=== PATIENT | female | born 1975 | race Caucasian/White ===

== ENCOUNTER 2018-12-15 11:31 | Outpatient (CLI) | payer BC ==
--- NOTE | 2018-12-22 16:16 | MMO ---
Bilateral MAMMO Bilat Screen [facility]. CLINICAL HISTORY: Patient is 43 years old and is seen for screening. The patient has no family history of breast cancer. The patient has no personal history of cancer. VIEWS: The views performed were: bilateral craniocaudal with tomosynthesis and bilateral mediolateral oblique with tomosynthesis. FILMS COMPARED: The present examination has been compared to prior imaging studies performed at [facility] on 12/22/2017, at [facility] on 12/29/2014, and at [facility] on 09/11/2015 and 09/22/2016. This study has been interpreted with the assistance of computer-aided detection. MAMMOGRAM FINDINGS: The breasts are heterogeneously dense, which could obscure a lesion on mammography. There are no suspicious masses, suspicious calcifications, or new areas of architectural distortion. IMPRESSION: THERE IS NO MAMMOGRAPHIC EVIDENCE OF MALIGNANCY. A ROUTINE FOLLOW-UP MAMMOGRAM IN 1 YEAR IS RECOMMENDED. THE RESULTS OF THIS EXAM WERE SENT TO THE PATIENT. ACR BI-RADS Category 1 - Negative MAMMOGRAPHY NOTE: 1. A negative mammogram report should not delay a biopsy if a dominant of clinically suspicious mass is present. 2. Approximately 10% to 15% of breast cancers are not detected by mammography. 3. Adenosis and dense breasts may obscure an underlying neoplasm. Reported by: CODY PEÑALOZA MD Electonically Signed: [id number]
== END 2018-12-15 11:32 | disposition home or self-care (01) ==
LOC: BICMAMMO 11:31
PROVIDERS: ATTEND Obstetrics & Gynecology
DX: Z12.31 Encounter for screening mammogram for malignant neoplasm of breast (principal)
CPT/HCPCS: 77063; 77067

== ENCOUNTER 2019-07-05 09:53 | Outpatient (CLI) | payer BC ==
--- NOTE | 2019-07-05 14:29 | CT ---
CT ABDOMEN AND PELVIS WITH ORAL AND IV CONTRAST: HISTORY: Left upper quadrant pain. COMPARISON: None. FINDINGS: The lung bases are clear. The liver demonstrates diffusely decreased attenuation compared to the spl een consistent with fatty infiltration. No focal mass or abnormal biliary ductal dilatation is seen. Numerous calcified gallstones are present. The spleen, pancreas, adrenal glands, and kidneys are n ormal. No free air, free fluid, or lymphadenopathy is seen in the abdomen or pelvis. The small bowel loops are not abnormally dilated. A normal-appearing appendix is present. The patient is post hysterectomy. There is a 3.3 cm right adnexal cystic mass. There are vascular c alcifications without evidence of aneurysmal dilatation of the abdominal aorta. There are mild degen erative changes in the spine. IMPRESSION: 1. Fatty liver. 2. Cholelithiasis. 3. A 3.3 cm right adnexal cystic mass, likely ovarian. This should be evaluated with a pelvic ultra sound. POS: NORRISA
== END 2019-07-05 09:54 | disposition home or self-care (01) ==
LOC: SCSCT 09:53
PROVIDERS: ATTEND Internal Medicine Gastroenterology
DX: K80.20 Calculus of gallbladder without cholecystitis without obstruction (principal); R10.12 Left upper quadrant pain; R19.7 Diarrhea, unspecified; K74.60 Unspecified cirrhosis of liver; N83.8 Other noninflammatory disorders of ovary, fallopian tube and broad ligament
CPT/HCPCS: 36415; 74177; 82941; 84443; 84586

== ENCOUNTER 2019-12-19 08:18 | Outpatient (CLI) | payer BC ==
--- NOTE | 2019-12-19 08:57 | MMO ---
Bilateral MAMMO Bilat Screen [facility]DI[facility]. CLINICAL HISTORY: Patient is 43 years old and is seen for screening. The patient has no family history of breast cancer. The patient has no personal history of cancer. VIEWS: The views performed were: bilateral craniocaudal with tomosynthesis and bilateral mediolateral oblique with tomosynthesis. FILMS COMPARED: The present examination has been compared to prior imaging studies performed at [facility] on 12/22/2017, and at [facility] on 09/11/2015, 09/22/2016 and 12/15/2018. This study has been interpreted with the assistance of computer-aided detection. MAMMOGRAM FINDINGS: The breasts are heterogeneously dense, which could obscure a lesion on mammography. There are calcifications seen in the upper-outer region of the left breast. In the right breast, there are no suspicious masses, calcifications or areas of architectural distortion. IMPRESSION: CALCIFICATIONS IN THE LEFT BREAST REQUIRE ADDITIONAL EVALUATION. MAGNIFICATION VIEWS ARE RECOMMENDED. THE RESULTS OF THIS EXAM WERE SENT TO THE PATIENT. ACR BI-RADS Category 0 - Incomplete: Need additional imaging evaluation. [facility] will notify the patient of the need for additional imaging services. MAMMOGRAPHY NOTE: 1. A negative mammogram report should not delay a biopsy if a dominant of clinically suspicious mass is present. 2. Approximately 10% to 15% of breast cancers are not detected by mammography. 3. Adenosis and dense breasts may obscure an underlying neoplasm. Reported by: CLAUDETTE LUTZ MD Electonically Signed: [id number]
== END 2019-12-19 08:19 | disposition home or self-care (01) ==
LOC: BICMAMMO 08:18
PROVIDERS: ATTEND Obstetrics & Gynecology
DX: Z12.31 Encounter for screening mammogram for malignant neoplasm of breast (principal); R92.1 Mammographic calcification found on diagnostic imaging of breast
CPT/HCPCS: 77063; 77067

== ENCOUNTER 2019-12-20 12:51 | Outpatient (CLI) | payer BC ==
--- NOTE | 2019-12-20 13:17 | MMO ---
Left Breast MAMMO Unilat Diag DDI LT+JIA. CLINICAL HISTORY: Patient is 43 years old and is seen for additional evaluation requested at current screening. The patient has no family history of breast cancer. The patient has no personal history of cancer. VIEWS: The views performed were: left craniocaudal spot compression magnification; left mediolateral spot compression magnification; and left mediolateral with tomosynthesis. FILMS COMPARED: The present examination has been compared to prior imaging studies performed at [facility] on 12/22/2017, and at [facility] on 09/22/2016, 12/15/2018 and 12/19/2019. This study has been interpreted with the assistance of computer-aided detection. MAMMOGRAM FINDINGS: The breast is heterogeneously dense, which could obscure a lesion on mammography. Some of the tiny calcs in the left upper outer breast appear new and should be biopsied. IMPRESSION: FINDING IN THE LEFT BREAST IS SUSPICIOUS. A STEREOTACTIC BREAST BIOPSY IS RECOMMENDED. THE RESULTS OF THIS EXAM WERE SENT TO THE PATIENT. ACR BI-RADS Category 4 - Suspicious abnormality - biopsy should be considered D/W pt in person @ 1315 hrs. MAMMOGRAPHY NOTE: 1. A negative mammogram report should not delay a biopsy if a dominant of clinically suspicious mass is present. 2. Approximately 10% to 15% of breast cancers are not detected by mammography. 3. Adenosis and dense breasts may obscure an underlying neoplasm. Reported by: CLAUDETTE LUTZ MD Electonically Signed: [id number]
== END 2019-12-20 12:52 | disposition home or self-care (01) ==
LOC: BICMAMMO 12:51
PROVIDERS: ATTEND Family Medicine
DX: R92.1 Mammographic calcification found on diagnostic imaging of breast (principal)
CPT/HCPCS: G0279

== ENCOUNTER → 2019-12-27 | Day surgery (SDC) | payer BC ==
--- NOTE | 2019-12-27 08:54 | MMO ---
MAMMOGRAPHIC GUIDED STEREOTACTIC BREAST BIOPSY PREPROCEDURE DIAGNOSIS: Left breast calcifications PROCEDURE: 1. Stereotactic biopsy of left breast calcifications with vacuum assistance 2. Specimen radiograph 3. Post procedure mammogram VICE PRESIDENT OF COMMUNICATIONS: Jarrell ANESTHESIA: 11 mL of buffered 1% lidocaine with epinephrine SPECIMEN: 6 -10-gauge vacuum-assisted core biopsy specimens TECHNIQUE: Prior to the procedure, the risks and benefits of stereotactic biopsy of the suspicious breast calcif ications were explained with the patient and full consent was obtained. The prior mammograms were reviewed showing calcifications in the upper outer left breast. The calcifications were localized with the stereotactic machine with approach from superior. The ricardo st was prepped with Betadine. Lidocaine was used to anesthetize the skin and tissues surrounding the biopsy site. A skin incision was made to allowing for passage of the 10-gauge vacuum-assisted biopsy device. This device was then placed using stereotactic guidance into the region of the calcifications. 6 core biopsies were then performed. A specimen radiograph showed calcifications within at least one of the specimens. A biopsy clip was then placed at the biopsy site. A postprocedure mammogram showed the clip in approp riate position at the biopsy site in the region where the suspicious calcifications were seen on the preprocedure mammogram. No residual calcifications were seen in this location.
== END ==
LOC: MAMMO 07:16
PROVIDERS: ATTEND Obstetrics & Gynecology
PROC: 0H9U3ZX Drainage of Left Breast, Percutaneous Approach, Diagnostic (ICD-10-PCS; principal; 2019-12-27)
DX: N60.12 Diffuse cystic mastopathy of left breast (principal); N60.82 Other benign mammary dysplasias of left breast; N60.22 Fibroadenosis of left breast
CPT/HCPCS: 19081; 76098; 88305